=== PATIENT | female | born 1990 | race Two or more races ===

== ENCOUNTER 2019-03-12 16:16 | Inpatient (IN) | payer OTHER ==
[~2019-03-12] VITALS: Ht 162.6 cm; Wt 90.7 kg
--- NOTE | 2019-03-12 16:35 | NUR ---
PACIENTE FEMINA ALERTA Y ORIENTADA REFIERE TENER DOLOR EN CUADRANTE SUPERIRO RT DESDE HACE DOS MESES. REFERIDO POR DR:ASAEL JARQUIN A DR. MAVERICK DANGELO. POR PROBLEMAS EN LA VESICULA.
--- NOTE | 2019-03-12 17:23 | NUR ---
SE EDUCA A PTE SOBRE [place] MEDICO ESTA REFERE ENTENDER. SE CLAIR MUESTRAS D ELAB UTILIZANDO MEDIDAS ASEPTICAS. SE COLOCA H/L A PTE EL CUAL SE ENCUENTRA PATENTE WILL DE EDEMA. SE NOTIFICA ESTUDIO DE SONOGRAFIA PENDIENTE A REALIZAR.
[2019-03-18] MEDS ORDERED: OXYC1TAB9 PO (15:45)
[2019-03-18] MEDS ORDERED: DICLOFENAC SODI75 MG PO (15:46)
[2019-03-18] MEDS ORDERED: DEXILANT60 MG PO (15:46)
== END 2019-03-18 16:46 | disposition home or self-care (01) | DRG 418 ==
LOC: ER 16:16 → SURH 18:14
PROVIDERS: ADMIT Surgery
PROC: 4A033R1 Measurement of Arterial Saturation, Peripheral, Percutaneous Approach (ICD-10-PCS; 2019-03-14)
PROC: BF14YZZ Fluoroscopy of Gallbladder, Bile Ducts and Pancreatic Ducts using Other Contrast (ICD-10-PCS; 2019-03-17)
PROC: 4A19X1Z Monitoring of Respiratory Capacity, External Approach (ICD-10-PCS; 2019-03-17)
PROC: 05HY33Z Insertion of Infusion Device into Upper Vein, Percutaneous Approach (ICD-10-PCS; 2019-03-17)
PROC: 0FT44ZZ Resection of Gallbladder, Percutaneous Endoscopic Approach (ICD-10-PCS; principal; 2019-03-17 13:15)
DX: K80.10 Calculus of gallbladder with chronic cholecystitis without obstruction (principal); B37.49 Other urogenital candidiasis; F41.8 Other specified anxiety disorders; F32.89 Other specified depressive episodes; E66.9 Obesity, unspecified; I87.8 Other specified disorders of veins

== ENCOUNTER → 2020-02-24 | Outpatient (CLI) | payer OTHER ==
[~2020-02-24] MED LIST: DEXILANT60 MG PO; DICLOFENAC SODI75 MG PO; OXYC1TAB9 PO
== END | disposition home or self-care (01) ==
LOC: PRENATAL 09:30
PROVIDERS: ATTEND Obstetrics & Gynecology Maternal & Fetal Medicine
DX: O35.0XX1 Maternal care for (suspected) central nervous system malformation in fetus, fetus 1 (principal); O35.3XX1 Maternal care for (suspected) damage to fetus from viral disease in mother, fetus 1; O98.512 Other viral diseases complicating pregnancy, second trimester; O99.212 Obesity complicating pregnancy, second trimester; Z36.89 Encounter for other specified antenatal screening; Z3A.20 20 weeks gestation of pregnancy

== ENCOUNTER → 2020-04-06 | Outpatient (CLI) | payer OTHER | END | disposition home or self-care (01) | LOC: PRENATAL 08:44 | PROVIDERS: ATTEND Obstetrics & Gynecology Maternal & Fetal Medicine | DX: O26.842 Uterine size-date discrepancy, second trimester (principal); O99.212 Obesity complicating pregnancy, second trimester; Z36.89 Encounter for other specified antenatal screening; Z3A.26 26 weeks gestation of pregnancy ==

== ENCOUNTER 2020-05-22 17:32 | Outpatient (CLI) | payer OTHER | END 2020-05-23 10:33 | disposition home or self-care (01) | LOC: OBS/DEL 17:32 | PROVIDERS: ATTEND Obstetrics & Gynecology | DX: O60.03 Preterm labor without delivery, third trimester (principal); O99.213 Obesity complicating pregnancy, third trimester; E66.8 Other obesity; O99.343 Other mental disorders complicating pregnancy, third trimester; F32.89 Other specified depressive episodes; F41.8 Other specified anxiety disorders; Z3A.32 32 weeks gestation of pregnancy; Z20.822 Contact with and (suspected) exposure to COVID-19 ==

== ENCOUNTER → 2020-06-02 | Outpatient (CLI) | payer OTHER | END | disposition home or self-care (01) | LOC: PRENATAL 09:00 | PROVIDERS: ATTEND Obstetrics & Gynecology Maternal & Fetal Medicine | DX: O26.843 Uterine size-date discrepancy, third trimester (principal); O35.0XX1 Maternal care for (suspected) central nervous system malformation in fetus, fetus 1; O24.414 Gestational diabetes mellitus in pregnancy, insulin controlled; O13.3 Gestational [pregnancy-induced] hypertension without significant proteinuria, third trimester; Z36.89 Encounter for other specified antenatal screening; Z3A.35 35 weeks gestation of pregnancy ==

== ENCOUNTER 2020-06-22 06:13 | Inpatient (IN) | payer OTHER ==
[~2020-06-22] VITALS: Ht 160 cm; Wt 3.6 kg
[~2020-06-22 06:13] MED LIST changes: +METFORMIN HCL500 M3 PO
[2020-06-22] MEDS ORDERED: PRENATAL CAPLE1 EAC1 PO (10:08)
[2020-06-22] MEDS ORDERED: ALDOMET250 MG/5 M PO (10:09)
== END 2020-06-25 15:39 | disposition home or self-care (01) | DRG 786 ==
LOC: LDR 06:13 → O/R 14:04 → OB/GYN 16:07
PROVIDERS: ADMIT Obstetrics & Gynecology; ATTEND Obstetrics & Gynecology
PROC: 4A1HXFZ Monitoring of Products of Conception, Cardiac Rhythm, External Approach (ICD-10-PCS; 2020-06-22)
PROC: 10D00Z1 Extraction of Products of Conception, Low, Open Approach (ICD-10-PCS; principal; 2020-06-22 12:00)
DX: O33.5XX0 Maternal care for disproportion due to unusually large fetus, not applicable or unspecified (principal); O75.3 Other infection during labor; O13.4 Gestational [pregnancy-induced] hypertension without significant proteinuria, complicating childbirth; O24.420 Gestational diabetes mellitus in childbirth, diet controlled; Z3A.36 36 weeks gestation of pregnancy; Z37.0 Single live birth

== ENCOUNTER 2022-02-27 09:19 | Outpatient (CLI) | payer OTHER ==
[~2022-02-27 09:19] MED LIST changes: +ALDOMET250 MG/5 M PO; +PRENATAL CAPLE1 EAC1 PO
== END 2022-02-27 09:24 | disposition home or self-care (01) ==
LOC: SONOGRAMA 09:19
PROVIDERS: ATTEND Pathology Anatomic Pathology
DX: D34 Benign neoplasm of thyroid gland (principal); E04.9 Nontoxic goiter, unspecified; E04.2 Nontoxic multinodular goiter

== ENCOUNTER 2022-05-04 09:56 | Emergency (ER) | payer OTHER ==
[~2022-05-04] VITALS: Ht 160 cm; Wt 124.7 kg
[2022-05-04] MEDS ORDERED: ATIVAN1 M1 (10:07)
[2022-05-04] MEDS ORDERED: NASAL MIST126 ML (10:08)
[2022-05-04] MEDS ORDERED: NIKKI 3 MG-0.01 EACH (10:08)
== END 2022-05-04 15:47 | disposition home or self-care (01) ==
LOC: ER 09:56
DX: K62.5 Hemorrhage of anus and rectum (principal); R10.9 Unspecified abdominal pain; Z91.018 Allergy to other foods

== ENCOUNTER 2022-07-20 19:41 | Emergency (ER) | payer OTHER ==
[~2022-07-20] VITALS: Ht 160 cm; Wt 124.3 kg
[~2022-07-20 19:41] MED LIST changes: +ATIVAN1 M1; +NASAL MIST126 ML; +NIKKI 3 MG-0.01 EACH
[2022-07-20] MEDS ORDERED: BUPROPION HCL100 MG (20:14)
== END 2022-07-20 21:56 | disposition home or self-care (01) ==
LOC: ER 19:41
DX: K59.1 Functional diarrhea (principal); Z91.018 Allergy to other foods

== ENCOUNTER 2022-08-30 08:33 | Emergency (ER) | payer OTHER ==
[~2022-08-30] VITALS: Ht 160 cm; Wt 127.0 kg
[~2022-08-30 08:33] MED LIST changes: +BUPROPION HCL100 MG
== END 2022-08-30 11:38 | disposition home or self-care (01) ==
LOC: ER 08:33
DX: N39.0 Urinary tract infection, site not specified (principal)

== ENCOUNTER 2022-09-09 19:27 | Emergency (ER) | payer OTHER ==
[~2022-09-09] VITALS: Ht 160 cm; Wt 128.8 kg
[2022-09-09] MEDS ORDERED: PRENATAL + DHA1 EAC1 (19:37)
[2022-09-09] MEDS ORDERED: FOLIC ACID0.8 M1 (19:37)
== END 2022-09-10 02:59 | disposition home or self-care (01) ==
LOC: ER 19:27
DX: O20.9 Hemorrhage in early pregnancy, unspecified (principal)

== ENCOUNTER 2022-09-11 09:52 | Outpatient (CLI) | payer OTHER ==
[~2022-09-11 09:52] MED LIST changes: +FOLIC ACID0.8 M1; +PRENATAL + DHA1 EAC1
== END 2022-09-11 11:50 | disposition home or self-care (01) ==
LOC: PRENATAL 09:52
PROVIDERS: ATTEND Obstetrics & Gynecology Maternal & Fetal Medicine
DX: O36.80X0 Pregnancy with inconclusive fetal viability, not applicable or unspecified (principal); O99.210 Obesity complicating pregnancy, unspecified trimester; O34.219 Maternal care for unspecified type scar from previous cesarean delivery; O99.341 Other mental disorders complicating pregnancy, first trimester; O99.891 Other specified diseases and conditions complicating pregnancy; Z3A.13 13 weeks gestation of pregnancy

== ENCOUNTER 2022-10-07 10:29 | Emergency (ER) | payer OTHER ==
[~2022-10-07] VITALS: Ht 160 cm; Wt 131.5 kg
== END 2022-10-07 16:49 | disposition home or self-care (01) ==
LOC: ER 10:29
PROVIDERS: Emergency Medicine
DX: O26.899 Other specified pregnancy related conditions, unspecified trimester (principal); K52.9 Noninfective gastroenteritis and colitis, unspecified; R10.9 Unspecified abdominal pain; Z3A.16 16 weeks gestation of pregnancy

== ENCOUNTER 2022-10-09 09:40 | Emergency (ER) | payer OTHER ==
[~2022-10-09] VITALS: Ht 160 cm; Wt 131.5 kg
[2022-10-09] MEDS ORDERED: MACRODANTIN100 M1 PO (14:03)
== END 2022-10-09 14:20 | disposition home or self-care (01) ==
LOC: ER 09:40
PROVIDERS: General Practice
DX: N39.0 Urinary tract infection, site not specified (principal); M54.59 Other low back pain

== ENCOUNTER 2022-11-20 13:09 | Inpatient (IN) | payer OTHER ==
[~2022-11-20] VITALS: Ht 160 cm; Wt 128.8 kg
[~2022-11-20 13:09] MED LIST changes: +MACRODANTIN100 M1 PO
[2022-11-20 14:08] LABS: HEMATOCRIT 36.3 % (36.0-45.00); HEMOGLOBIN 11.7 g/dL (12.0-15.00); MEAN CELL VOLUME 80.6 fL (80.00-100.00); MEAN CORPUSCULAR HGB CONC 32.2 g/dl (32.0-36.0); PLATELET COUNT 295 K/uL (150-450); RED CELL DISTRIBUTION WIDTH 13.6 % (11.5-14.5)
[2022-11-20 14:29] LABS: ALBUMIN 3.2 gm/dL (3.4-5.0); BILIRUBIN TOTAL 0.16 mg/dL (0.3-1.2); CALCIUM 9.4 mg/dL (8.5-10.1); CREATININE SERUM 0.58 mg/dL (0.55-1.02); GFR 122.06; GLOBULINA 3.5 G/DL (2.4-3.5); POTASSIUM 4.17 mEq/L (3.5-5.1); TOTAL PROTEIN 6.7 gm/dL (6.4-8.2)
[2022-11-21 13:59] LABS: PH,URINE 6.5 (5.0-8.0); URINE APPEARANCE Clear; URINE BILIRRUBIN Negative (NEGATIVE); URINE BLOOD Negative; URINE COLOR Yellow; URINE GLUCOSE Negative (NEGATIVE); URINE LEUKOCYTE Negative; URINE NITRATE Negative; URINE PROTEIN Negative (NEGATIVE); URINE UROBILINOGEN 0.2 E.U./dl
[2022-11-21 14:02] LABS: URINE RBC 12.7 uL (0.0-20.8); URINE WBC 24.5 uL (0.0-23.2)
== END 2022-11-22 14:41 | disposition home or self-care (01) | DRG 833 ==
LOC: OB/GYN 13:09
PROVIDERS: ADMIT Obstetrics & Gynecology; ATTEND Obstetrics & Gynecology
PROC: 4A1HXCZ Monitoring of Products of Conception, Cardiac Rate, External Approach (ICD-10-PCS; principal; 2022-11-20)
PROC: B54BZZZ Ultrasonography of Right Lower Extremity Veins (ICD-10-PCS; 2022-11-20)
PROC: BT43ZZZ Ultrasonography of Bilateral Kidneys (ICD-10-PCS; 2022-11-21)
DX: O26.892 Other specified pregnancy related conditions, second trimester (principal); K52.9 Noninfective gastroenteritis and colitis, unspecified; Z3A.23 23 weeks gestation of pregnancy; Z20.822 Contact with and (suspected) exposure to COVID-19; O47.02 False labor before 37 completed weeks of gestation, second trimester; M54.50 Low back pain, unspecified; O99.342 Other mental disorders complicating pregnancy, second trimester; F32.A Depression, unspecified
CPT/HCPCS: 240

== ENCOUNTER → 2023-01-01 | Outpatient (CLI) | payer OTHER | END | disposition home or self-care (01) | LOC: PRENATAL 13:02 | PROVIDERS: ATTEND Obstetrics & Gynecology Maternal & Fetal Medicine | DX: O26.849 Uterine size-date discrepancy, unspecified trimester (principal); O99.210 Obesity complicating pregnancy, unspecified trimester; O34.219 Maternal care for unspecified type scar from previous cesarean delivery; O99.343 Other mental disorders complicating pregnancy, third trimester; O99.891 Other specified diseases and conditions complicating pregnancy; O44.00 Complete placenta previa NOS or without hemorrhage, unspecified trimester; Z3A.29 29 weeks gestation of pregnancy ==

== ENCOUNTER 2023-02-08 13:33 | Outpatient (CLI) | payer OTHER | END 2023-02-08 13:38 | disposition home or self-care (01) | LOC: PRENATAL 13:33 | PROVIDERS: ATTEND Obstetrics & Gynecology Maternal & Fetal Medicine | DX: O26.849 Uterine size-date discrepancy, unspecified trimester (principal); O36.8199 Decreased fetal movements, unspecified trimester, other fetus; O34.219 Maternal care for unspecified type scar from previous cesarean delivery; O32.9XX0 Maternal care for malpresentation of fetus, unspecified, not applicable or unspecified; Z3A.34 34 weeks gestation of pregnancy ==

== ENCOUNTER 2023-02-26 22:08 | Inpatient (IN) | payer OTHER ==
[~2023-02-26] VITALS: Ht 160 cm; Wt 3.6 kg
[2023-02-26 23:16] LABS: HEMATOCRIT 34.6 % (36.0-45.00); MEAN CELL VOLUME 81.7 fL (80.00-100.00); MEAN CORPUSCULAR HGB CONC 33.2 g/dl (32.0-36.0); PLATELET COUNT 225 K/uL (150-450); RED BLOOD COUNT 4.23 M/uL (4.00-6.00)
[2023-02-26 23:36] LABS: INR < 0.93; PARTIAL THROMBOPLASTIN TIME 26.8 SECONDS (22.0-34.0); PROTHROMBIN TIME 9.8 SECONDS (9.0-11.5)
[2023-02-26 23:42] LABS: HEMOGLOBIN 11.5 g/dL (12.0-15.00); MEAN CORPUSCULAR HEMOGLOBIN 27.1 pg (27.00-32.0)
[2023-02-27 02:19] LABS: PH,URINE 6.5 (5.0-8.0); URINE APPEARANCE Cloudy; URINE BILIRRUBIN Negative (NEGATIVE); URINE BLOOD Negative; URINE COLOR Yellow; URINE GLUCOSE Negative (NEGATIVE); URINE LEUKOCYTE Small; URINE NITRATE Negative; URINE PROTEIN 30 (NEGATIVE)
[2023-02-27 02:23] LABS: URINE BACTERIA 1383.3 uL (0.0-1933); URINE EPITHELIAL CELLS 30.3 uL (0.0-38.8); URINE RBC 64.3 uL (0.0-20.8); URINE WBC 45.9 uL (0.0-23.2)
[2023-02-27 13:05] LABS: ABG PH 7.266 (7.35-7.45); ABG PO2 32.8 mmHg (80-100); ABG pCO2 48.1 mmHg (35-45); BASE EXCESS -5.7 mmol/l; BICARBONATE 21.4 mmol/l (23-25); SaO2 51.7 %; Tco2 22.9 mmol/l; o2 21 %
[2023-02-27 15:24] LABS: HEMATOCRIT 30.5 % (36.0-45.00); HEMOGLOBIN 10.3 g/dL (12.0-15.00); MEAN CORPUSCULAR HEMOGLOBIN 27.7 pg (27.00-32.0); MEAN CORPUSCULAR HGB CONC 33.8 g/dl (32.0-36.0); PLATELET COUNT 205 K/uL (150-450); RED BLOOD COUNT 3.72 M/uL (4.00-6.00); RED CELL DISTRIBUTION WIDTH 14.3 % (11.5-14.5)
== END 2023-03-02 14:45 | disposition home or self-care (01) | DRG 785 ==
LOC: LDR 22:08 → OB/GYN 22:08 → O/R 02-27 09:52 → OB/GYN 02-27 13:24
PROVIDERS: ADMIT Obstetrics & Gynecology; ATTEND Obstetrics & Gynecology
PROC: 4A1HXCZ Monitoring of Products of Conception, Cardiac Rate, External Approach (ICD-10-PCS; 2023-02-26)
PROC: 0UB70ZZ Excision of Bilateral Fallopian Tubes, Open Approach (ICD-10-PCS; 2023-02-27)
PROC: 10D00Z1 Extraction of Products of Conception, Low, Open Approach (ICD-10-PCS; principal; 2023-02-27 10:15)
DX: O34.211 Maternal care for low transverse scar from previous cesarean delivery (principal); Z3A.37 37 weeks gestation of pregnancy; Z37.0 Single live birth; Z20.822 Contact with and (suspected) exposure to COVID-19; Z30.2 Encounter for sterilization